=== PATIENT | female | born 1980 | race Caucasian/White ===

== ENCOUNTER 2021-07-02 16:57 | Emergency (ER) | payer OTHER ==
[~2021-07-02] VITALS: Ht 152.4 cm; Wt 81.6 kg
== END 2021-07-02 20:33 | disposition home or self-care (01) ==
LOC: ER 16:57
DX: I10 Essential (primary) hypertension (principal); R51.9 Headache, unspecified; Z91.013 Allergy to seafood

== ENCOUNTER 2022-06-09 09:07 | Inpatient (IN) | payer OTHER ==
[~2022-06-09] VITALS: Ht 152.4 cm; Wt 85.7 kg
--- NOTE | 2022-06-09 09:10 | NUR ---
SE RECIBE PACIENTE ALERTA Y ORIENTADA X3 QUIEN REFIERE QUE DESDE EL PASADO LUNES COMENZO CON DOLOR PELVICO DEL LADO DERECHO QUE SE IRRADIA A LA ESPALDA BAJA. VERBALIZA QUE HUYNH TENIDO VARIOS VOMITOS. SE MONITOREAN S/V Y SE UBICA PACIENTE.
[2022-06-09] MEDS ORDERED: COZAAR100 MG PO (09:13)
--- NOTE | 2022-06-09 11:37 | NUR ---
SE ORIENTA PTE SOBRE EL TRATAMIENTO ORDENADO POR LA DRA COPE PTE ALERTA Y OREITNADO POR 3 SE REALIZAN MUESTRAS DE LABORTORIO Y SE ADMINISTRAN MEDICAMENTO MIRA ORDENADO.
[2022-06-10] MEDS ORDERED: VITAMIN D31250 MCG (13:56)
[2022-06-10] MEDS ORDERED: LOSARTAN-HCTZ1 EAC2 (13:56)
[2022-06-12] MEDS ORDERED: NIFEDIPINE ER60 MG PO (10:47)
[2022-06-12] MEDS ORDERED: HYZAAR 100-251 EACH PO (10:49)
== END 2022-06-12 11:31 | disposition home or self-care (01) | DRG 690 ==
LOC: ER 09:07 → MEDI 15:59 → MEDJ 15:59 → MEDI 16:29
PROVIDERS: Urology; ADMIT Internal Medicine; ATTEND Internal Medicine
PROC: BW21ZZZ Computerized Tomography (CT Scan) of Abdomen and Pelvis (ICD-10-PCS; 2022-06-09)
PROC: 0T7D8DZ Dilation of Urethra with Intraluminal Device, Via Natural or Artificial Opening Endoscopic (ICD-10-PCS; 2022-06-11)
PROC: 0TPD8DZ Removal of Intraluminal Device from Urethra, Via Natural or Artificial Opening Endoscopic (ICD-10-PCS; principal; 2022-06-11 12:00)
DX: N13.6 Pyonephrosis (principal); N20.1 Calculus of ureter; N35.82 Other urethral stricture, female; Z20.822 Contact with and (suspected) exposure to COVID-19; I10 Essential (primary) hypertension

== ENCOUNTER 2023-04-13 11:46 | Emergency (ER) | payer OTHER ==
[~2023-04-13] VITALS: Ht 165.1 cm; Wt 71.7 kg
[~2023-04-13 11:46] MED LIST: COZAAR100 MG PO; HYZAAR 100-251 EACH PO; LOSARTAN-HCTZ1 EAC2; NIFEDIPINE ER60 MG PO; VITAMIN D31250 MCG
[2023-04-13 15:11] LABS: HEMATOCRIT 43.5 % (36.0-45.00); HEMOGLOBIN 14.1 g/dL (12.0-15.00); MEAN CELL VOLUME 88.4 fL (80.00-100.00); MEAN CORPUSCULAR HEMOGLOBIN 28.6 pg (27.00-32.0); MEAN CORPUSCULAR HGB CONC 32.3 g/dl (32.0-36.0); PLATELET COUNT 426 K/uL (150-450); RED BLOOD COUNT 4.92 M/uL (4.00-6.00)
[2023-04-13 15:20] LABS: PH,URINE 7.5 (5.0-8.0); URINE APPEARANCE Clear; URINE BACTERIA 1116.2 uL (0.0-1933); URINE BILIRRUBIN Negative (NEGATIVE); URINE BLOOD Large; URINE COLOR Yellow; URINE EPITHELIAL CELLS 19.6 uL (0.0-38.8); URINE GLUCOSE Negative (NEGATIVE); URINE LEUKOCYTE Trace; URINE NITRATE Negative; URINE PROTEIN Negative (NEGATIVE); URINE UROBILINOGEN 0.2 E.U./dl; URINE WBC 30.1 uL (0.0-23.2)
[2023-04-13 17:26] LABS: ALBUMIN 3.6 gm/dL (3.4-5.0); BILIRUBIN TOTAL 0.33 mg/dL (0.3-1.2); CALCIUM 9.5 mg/dL (8.5-10.1); CREATININE SERUM 0.9 mg/dL (0.55-1.02); GFR 69.35; GLOBULINA 5.3 G/DL (2.4-3.5); POTASSIUM 4.1 mEq/L (3.5-5.1); TOTAL PROTEIN 8.9 gm/dL (6.4-8.2)
[2023-04-13] MEDS ORDERED: TAMS0.4C PO (18:08)
[2023-04-13] MEDS ORDERED: KETO10TA2 PO (18:08)
[2023-04-13] MEDS ORDERED: CIPRO500 MG PO (18:08)
== END 2023-04-13 18:25 | disposition home or self-care (01) ==
LOC: ER 11:46
PROVIDERS: General Practice
DX: N23 Unspecified renal colic (principal); I10 Essential (primary) hypertension; Z91.013 Allergy to seafood; N20.0 Calculus of kidney